=== PATIENT | male | born 1975 ===

== ENCOUNTER → 2017-11-25 | Outpatient (CLI) | payer OTHER | LOC: CFH 10:05 | PROVIDERS: ATTEND Nurse Practitioner | DX: M48.061 Spinal stenosis, lumbar region without neurogenic claudication (principal); M51.26 Other intervertebral disc displacement, lumbar region; M51.24 Other intervertebral disc displacement, thoracic region; G89.29 Other chronic pain | CPT/HCPCS: 72146; 72148 ==